=== PATIENT | male | born 1980 | race Caucasian/White ===

== ENCOUNTER → 2017-10-02 | Outpatient (CLI) | payer MEDICARE, MEDICAID ==
[2014-07-11 11:13] VITALS: BMI 40.4
[~2017-10-02] MED LIST: ARIP5TAB28 PO; ENO40I SQ; FLU10 PO; LEVE750T62 PO; LEVO50TA80 PO; OLA5 PO; OLAN2.5T22 PO; ONDA4TAB PO; PHEN100 PO; RISP0.5T82 PO; VENL-10 PO; VENL150C61 PO; WAR5 PO; WARF-12 PO; WARF2.5T11 PO; [UNRECOGNIZED DRUG - CODE] IV
--- NOTE | 2017-10-02 12:39 | RADIOLOGY IMAGING REPORT ---
FACILITY: [facility] - [place] PATIENT NAME: Barbara Solorio : 1980 MR: [id number] V: [id number] EXAM DATE: ORDERING PHYSICIAN: JAIR HARRIS TECHNOLOGIST: Location: [facility] - [place] Patient: Barbara Solorio : 1980 Visit/Account:[id number] Date of Sevice: 10/02/2017 2 VIEWS CHEST INDICATION: Cough. COMPARISON: 07/02/2014. FINDINGS: Cardiomediastinal silhouette and pulmonary vessels within normal limits. Lung volumes are decreased bilaterally causing accentuation to the interstitium. No focal area of co nsolidation. There is no pneumothorax or pleural effusion. No nodule. Upper abdomen is unremarkable. No acute bony abnormalities stable mild compressions of the vertebral bodies at the thoracolumbar junction. IMPRESSION: 1. No acute cardiopulmonary process. Report Dictated By: Benjamin Tsang at 10/02/2017 12:31 PM Report E-Signed By: Benjamin Tsang at 10/02/2017 12:33 PM WSN:[id number]
--- NOTE | 2017-10-02 13:00 | RADIOLOGY IMAGING REPORT ---
FACILITY: [facility] PATIENT NAME: Barbara Solorio : 1980 MR: [id number] V: [id number] EXAM DATE: ORDERING PHYSICIAN: JAIR HARRIS TECHNOLOGIST: Location: [facility] - [place], [place] Patient: Barbara Solorio : 1980 Visit/Account:[id number] Date of Sevice: 10/02/2017 Supine abdomen, one view. HISTORY: Cough, diarrhea. COMPARISON: None. Moderate amounts of stool and small amounts of gas are scattered in the right colon and rectum. Gas i s present within several nondilated loops of small bowel. No acute bony abnormalities. Several dens ities project on the left upper abdomen probably representing rib cartilage calcifications. No acute bony abnormalities. IMPRESSION: Minimal colorectal obstipation. Otherwise negative. Report Dictated By: Scott Vance MD at 10/02/2017 12:53 PM Report E-Signed By: Scott Vance MD at 10/02/2017 12:56 PM WSN:[id number]
== END ==
LOC: RAD 11:32
PROVIDERS: ATTEND Physician Assistant
DX: R19.7 Diarrhea, unspecified (principal); R05 Cough
CPT/HCPCS: 71046; 74018

== ENCOUNTER → 2017-10-02 | Outpatient (REF) | payer MEDICARE, MEDICAID ==
[2014-07-11 11:13] VITALS: BMI 40.4
[2017-10-02 12:03] LABS: INR 2.15
== END ==
LOC: ZZSENDIN 11:44 → EDSTATUS 11:45 → ZZSENDIN 11:46
PROVIDERS: ATTEND Physician Assistant
DX: Z86.718 Personal history of other venous thrombosis and embolism (principal)
CPT/HCPCS: 85610

== ENCOUNTER → 2018-01-02 | Outpatient (CLI) | payer MEDICARE, MEDICAID ==
[2014-07-11 11:13] VITALS: BMI 40.4
== END ==
LOC: US 01:08
PROVIDERS: ATTEND Family Medicine
DX: I51.7 Cardiomegaly (principal)
CPT/HCPCS: 93306

== ENCOUNTER → 2018-02-21 | Outpatient (CLI) | payer MEDICARE, MEDICAID ==
[2014-07-11 11:13] VITALS: BMI 40.4
== END ==
LOC: RESP 20:14
PROVIDERS: ATTEND Family Medicine
DX: G47.33 Obstructive sleep apnea (adult) (pediatric) (principal); G47.36 Sleep related hypoventilation in conditions classified elsewhere

== ENCOUNTER 2018-09-14 04:00 | Emergency (ER) | payer MEDICARE, MEDICAID ==
[2014-07-11 11:13] VITALS: Wt 142.7 kg
--- NOTE | 2018-09-14 04:03 | ER Report ---
History and Physical Time Seen By MD: 04:02 HPI/ROS CHIEF COMPLAINT: Persistent cough HISTORY OF PRESENT ILLNESS: 38-year-old male with developmental delay and autism, presents with his father complaining of a cough for 6-7 days. It's become persistent and severe. Tonight he is coughing continuously and unable to catch his breath. He wears O2 at home. 2 L by nasal cannula. 4. Hyporventilation syndrome. Patient also has hypothyroidism. Patient has a persistent cough is unable to sleep or breathes. He said several episodes to the point where he gagged and vomited. His father states they've been trying [id number] medication without improvement of his cough. Patient and father deny fever or chills. They deny productive cough. REVIEW OF SYSTEMS: Respiratory: As above Cardiovascular: No chest pain, no palpitations. Gastrointestinal: No vomiting, no abdominal pain. Musculoskeletal: No back pain. Allergies: Coded Allergies: No Known Allergies (Verified Allergy, Mild, 07/10/14) Home Meds Active Scripts Promethazine HCl/Codeine (Promethazine-Codeine Syrup) 6.25 Mg-10 Mg/5 Ml Syrup, 5-10 ML PO Q4H PRN for cough suppression, #120 Prov:HIRO MANN DO 09/14/18 Cefuroxime Axetil (CEFUROXIME) 500 Mg Tablet, 500 MG PO BID for infection, #14 TAB Prov:HIRO MANN DO 09/14/18 Reported Medications Warfarin Sodium (WARFARIN SODIUM) 2.5 Mg Tablet, 2.5 MG PO Th,Wallace 07/11/14 Olanzapine (ZYPREXA) 2.5 Mg Tablet, 2.5 MG PO QHS 07/11/14 Warfarin Sod (Coumadin (Or Equiv)) 5 Mg Tab, 5 MG PO M,T,W,F,SA It is very important that you take your coumadin exactly as prescribed, have blood work to monitor your PT/INR values, and follow up with your health care provider as prescribed. Diet and medication can affect the PT/INR level. Keep your diet pretty much the same day to day. Many foods contain Vitamin K which helps blood to clot and can affect the way your coumadin works. You don't need to avoid foods that have Vitamin K, but you do need to eat about the same amount of them every day. Be sure to tell your provider before changing your diet for any reason (weight loss, illness, etc.) Do not start or discontinue any medications, prescribed or over the counter, except on the advise of your provider or pharmacist. Coumadin (Warfarin) increases the risk of bleeding. 12/14/11 Venlafaxine Hcl (Effexor Xr) 150 Mg Cap.sr.24h, 150 MG PO QDAY 12/14/11 Aripiprazole (Abilify) 5 Mg Tablet, 15 MG PO DAILY, 0 Refills 12/08/10 Levetiracetam (Keppra) 750 Mg Tablet, 1500 MG PO BID, 0 Refills 12/08/10 Levothyroxine Sodium (Levothyroxine Sodium) 50 Mcg Tablet, 50 MCG PO DAILY, 0 Refills 12/08/10 Reviewed Nurses Notes: Yes Old Medical Records Reviewed: Yes Hx Smoking: No Hx Substance Use Disorder: No Hx Alcohol Use: No Constitutional Vital Sign - Last 24 Hours 09/14/18 09/14/18 09/14/18 09/14/18 04:05 04:06 04:15 04:16 Temp 98.3 Pulse 92 85 Resp 20 B/P (MAP) 125/84 125/84 (98) Pulse Ox 73 90 O2 Delivery Room Air O2 Flow Rate 4.0 09/14/18 09/14/18 04:30 05:00 B/P (MAP) 119/86 (97) 116/84 (95) Physical Exam Vital signs stable, afebrile, pulse ox, baseline 90% on 2 L General Appearance: The patient is alert, has no immediate need for airway protection and no current signs of toxicity. Mild distress, frequent coughing HEENT: Pupils equal and round no injection. TMs normal, oropharynx with moderate erythema, no exudate Respiratory: Chest is non tender, lungs are clear to auscultation. Diffuse rhonchi, faint expiratory wheezing, no Rales appreciated Cardiac: regular rate and rhythm Gastrointestinal: Abdomen is soft and non tender, no masses, bowel sounds normal. Musculoskeletal: Neck: Neck is supple and non tender. Extremities have full range of motion and are non tender. 1+ edema bilaterally appears chronic Skin: No rashes or lesions. DIFFERENTIAL DIAGNOSIS: After history and physical exam differential diagnosis was considered for shortness of breath including but not limited to pulmonary infectious process, COPD, asthma, pulmonary embolus and congestive heart failure. Medical Decision Making EKG/Imaging Imaging X-ray: Two-view chest x-ray was obtained. I viewed the images myself on the PACS system. My interpretation of the images is: No infiltrate, no effusion, normal mediastinum., Comparison to previous chest x-ray dated 10/02/17, no significant change. The radiologist interpretation had no clinically significant variation from this interpretation. ED Course/Re-evaluation ED Course Patient was admitted to an examination room. H&P was done. The differential diagnoses was considered. Patient with severe repetitive coughing and viral URI symptoms for over one week. Patient's chest x-ray is unremarkable for obvious infiltrate. He'll be treated with Ceftin for acute bronchitis and persistent cough. He's also given a prescription for Phenergan with codeine cough syrup 1- 2 teaspoons every 4 hours as needed for cough suppression. Patient and his [facility] er advised to follow-up with primary care if unimproved in 3-5 days. Decision to Disposition Date: September 14, 2018 Decision to Disposition Time: 04:25 Depart Departure Latest Vital Signs Vital Signs Date Time Temp Pulse Resp B/P (MAP) Pulse Ox O2 Delivery O2 Flow Rate FiO2 09/14/18 05:00 116/84 (95) 09/14/18 04:16 4.0 09/14/18 04:15 85 90 09/14/18 04:05 98.3 20 Room Air Impression: Primary Impression: Bronchitis Additional Impressions: Persistent cough History of DVT (deep vein thrombosis) Hypothyroidism Condition: Improved Disposition: HOME OR SELF-CARE Referrals: TAMELA PEREZ MD (PCP) New Scripts Promethazine HCl/Codeine (Promethazine-Codeine Syrup) 6.25 Mg-10 Mg/5 Ml Syrup 5-10 ML PO Q4H PRN for cough suppression, #120 Prov: HIRO MANN DO 09/14/18 Cefuroxime Axetil (CEFUROXIME) 500 Mg Tablet 500 MG PO BID for infection, #14 TAB Prov: HIRO MANN DO 09/14/18 Patient Instructions: Acute Bronchitis (ED) Additional Instructions: Follow-up with primary care if unimproved in 3-5 days Problem Qualifiers Additional Impressions: Hypothyroidism Hypothyroidism type: unspecified Qualified Codes: E03.9 - Hypothyroidism, unspecified HIRO MANN DO September 14, 2018 04:03
[2018-09-14] MEDS ORDERED: PROMETH/COD SYRP 6.25-10MG/5ML PO ONE (04:20)
[2018-09-14] MEDS ORDERED: CEFUROXIME AXETIL 250 MG TAB PO ONE (04:20)
--- NOTE | 2018-09-14 04:45 | RADIOLOGY IMAGING REPORT ---
FACILITY: [facility] - [place] PATIENT NAME: Barbara Solorio : 1980 MR: [id number] V: [id number] EXAM DATE: ORDERING PHYSICIAN: HIRO MANN TECHNOLOGIST: Location: [facility] - [place] Patient: Barbara Solorio : 1980 Visit/Account:[id number] Date of Sevice: 09/14/2018 CHEST: Indication: Cough and dyspnea. Technique: Frontal and lateral views were obtained. Comparison: 10/02/2017 Skeletal and soft tissue structures: There are chronic compression deformities and degenerative díaz es in the lower thoracic spine. No acute skeletal deformity is clearly identified. Heart and mediastinum: Within normal limits. Lung cadena: Hypoexpanded, but clear. No acute findings. Pleural spaces: Unremarkable. Impression: No acute process or significant change. Report Dictated By: Soto Wilder MD at 09/14/2018 4:37 AM Report E-Signed By: Soto Wilder MD at 09/14/2018 4:41 AM WSN:[id number]
[2018-09-14] MEDS ORDERED: CEFU500T10 PO (04:47)
[2018-09-14] MEDS ORDERED: PROM473S4 PO (04:47)
[2018-09-14 05:00] VITALS: BP 116/84
== END 2018-09-14 05:04 | disposition home or self-care (01) ==
LOC: ER 04:06
DX: J40 Bronchitis, not specified as acute or chronic (principal); Z86.718 Personal history of other venous thrombosis and embolism; E03.9 Hypothyroidism, unspecified
CPT/HCPCS: 71046; 99283; A9270